=== PATIENT | male | born 1950 ===

== ENCOUNTER 2018-10-29 10:01 | Day surgery (SDC) | payer MEDICARE ==
[2018-10-04 09:53] VITALS: BMI 22.6
--- NOTE | 2018-10-29 11:34 | CP.PCM.CON ---
History of Present Illness - History of Present Illness History of Present Illness: SOLOMON PATIENT IS A 67 YEAR OLD MALE WHO WAS ADMITTED TODAY FOR A BRONCHOSCOPY FOR A RUL MASS SEEN ON CXR AND CT SCAN. HE WAS A FORMER SMOKER. HE ALSO HAS A HISTORY OF CAD, HYPERLIPIDEMIA AND TYPE 2 DM. HE HAD CHEST PAIN IN 2012 FOLLOW ED BY AN ABNORMAL STRESS TEST AND WENT ON TO HAVE A CARDIAC CATH AND CABGS. HE LATER HAD A STENT INSERTION. HE FOLLOWS WITH A LOCAL [employer]LE[employer] IN[employer] AND HASN'T HAD ANY CARDIAC PROBLEMS SINCE. HE HAD A NUCLEAR STRESS TEST IN [place] LAST WEEK THAT HE AND HIS DAUGHTER CLAIM WAS GOOD. HE IS CHEST PAIN FREE TODAY. I HAVE BEEN ASKED TO SEE HIM FOR CARDIAC CLEARANCE. HE IS ON ATORVASTATIN AND METFORMEN AND WAS ALSO ON ASPIRIN THAT WAS STOPPED LAST WEEK Past Patient History - Past Medical History & Family History Past Medical History?: Yes - Past Social History Smoking Status: VAPE-DAILY - CARDIAC Hx Cardiac Disorders: Yes Hx Angina: Yes (2011) Hx Hypercholesterolemia: Yes - PULMONARY Hx Respiratory Disorders: No - NEUROLOGICAL Hx Neurological Disorder: No - HEENT Hx HEENT Problems: Yes Hx Cataracts: Yes (both eyes) - RENAL Hx Chronic Kidney Disease: No - ENDOCRINE/METABOLIC Hx Endocrine Disorders: Yes Hx Diabetes Mellitus Type 2: Yes - HEMATOLOGICAL/ONCOLOGICAL Hx Blood Disorders: No Hx Anemia: No Hx Blood Transfusions: No - INTEGUMENTARY Hx Dermatological Problems: No - MUSCULOSKELETAL/RHEUMATOLOGICAL Hx Musculoskeletal Disorders: Yes Hx Back Pain: Yes Hx Falls: No - GASTROINTESTINAL Hx Gastrointestinal Disorders: Yes Hx Gastritis: Yes Other/Comment: HEARTBURN - GENITOURINARY/GYNECOLOGICAL Hx Genitourinary Disorders: Yes Hx Prostate Problems: Yes (IMFLAMATION OF PROSTATE) Hx Urinary Tract Infection: Yes - PSYCHIATRIC Hx Emotional Abuse: No Hx Physical Abuse: No - SURGICAL HISTORY Hx Surgeries: Yes Hx Cataract Extraction: Yes Hx Cardiac Catheterization: Yes (2011) Hx Eye Surgery: Yes (CATARACT BOTH EYES) Hx Open Heart Surgery: Yes (CLOGGED ARTERIES/VEINS) Other/Comment: OPEN HEART-2012 - ANESTHESIA Hx Anesthesia: Yes Hx Anesthesia Reactions: No Hx Malignant Hyperthermia: No Has any member of the family had a problem w/ anesthesia?: No Meds Allergies/Adverse Reactions: Allergies Allergy/AdvReac Type Severity Reaction Status Date / Time No Known Allergies Allergy Verified 10/05/18 11:10 Physical Exam - Respiratory Exam Respiratory Exam: Clear to Auscultation Bilateral - Cardiovascular Exam Cardiovascular Exam: REGULAR RHYTHM, +S1, +S2 - Extremities Exam Additional comments: NO LE EDEMA - Additional Findings Additional findings: EKG NSR Results - Vital Signs Recent Vital Signs: Last Vital Signs Temp 97.8 F 10/29/18 10:27 Pulse 80 10/29/18 10:34 Resp 18 10/29/18 10:27 BP 124/69 10/29/18 10:27 Pulse Ox 97 10/29/18 10:27 - Labs Labs: Laboratory Results - last 24 hr 10/29/18 10:24 POC Glucose (mg/dL) 233 H Assessment & Plan - Assessment and Plan (Free Text) Assessment: RUL TUMOR CAD-STABLE HYPERLIPIDEMIA TYPE 2 DM Plan: THE PATIENT IS CLEARED FOR HIS BRONCHOSCOPY
[2018-10-29] MEDS ORDERED: Etomidate 20 mg/10ml Inj IV ONE (11:45)
[2018-10-29] MEDS ORDERED: Midazolam 2 MG/2 ML VIAL ONE (11:46)
[2018-10-29] MEDS ORDERED: Propofol 10 mg/ml Inj (20 ML) ONE (11:46)
[2018-10-29] MEDS ORDERED: EPINEPHrine 1 mg/ml (1:1000) Inj ONE (12:01)
[2018-10-29] MEDS ORDERED: Lidocaine 2% Jelly (Uro-Jet) ONE (12:02)
[2018-10-29] MEDS ORDERED: Lidocaine 1% Inj (20ml) ONE (12:02)
[2018-10-29] MEDS ORDERED: Lidocaine 2% Jelly (5 ml) TOP ONE (12:05)
[2018-10-29] MEDS ORDERED: Lactated Ringer's 1,000 ML IV ONE (12:20)
[2018-10-29] MEDS ORDERED: Lactated Ringer's 1,000 ML IV SCH (13:00)
--- NOTE | 2018-10-29 13:14 | RAD ---
Date of service: 10/29/2018 PROCEDURE: Intraoperative Fluoroscopy. HISTORY: BRONCHOSCOPY: RUL FINDINGS: Fluoroscopic assistance was provided. Fluoroscopy time = 32.8 sec. Radiation dose = 2.36 mGy. Please refer to operative report for additional details.
--- NOTE | 2018-10-29 13:32 | RAD ---
Date of service: 10/29/2018 HISTORY: Status post bronchoscopy with biopsy COMPARISON: No prior studies available for comparison TECHNIQUE: 1 view obtained. FINDINGS: LUNGS: Vague patchy opacity seen in the right upper lung field with prominent right hilum. PLEURA: No significant pleural effusion identified, no pneumothorax apparent. CARDIOVASCULAR: No significant aortic atherosclerotic calcification present. Sternotomy wires and CABG clips. Heart size within range of normal.. No pulmonary vascular congestion. OSSEOUS STRUCTURES: No significant abnormalities. VISUALIZED UPPER ABDOMEN: Normal. OTHER FINDINGS: None. IMPRESSION: No evidence of pneumothorax. Vague patchy opacity seen in the right upper lung field with prominent right hilum.
[2018-10-29 13:47] VITALS: RESP 18
[2018-10-29 14:29] VITALS: BP 116/63; PULSE 71; TEMP 97.9; O2SAT 100
--- NOTE | 2018-10-30 08:17 | PROCN ---
DATE OF PROCEDURE: 10/29/2018 PROCEDURE: Fiberoptic bronchoscopy with transbronchial biopsy washings and brushings. INDICATIONS: Right lung mass. DESCRIPTION OF PROCEDURE: The procedure was done in the endoscopy suite under aseptic conditions. After anesthetizing the patient's upper airway with 1% Xylocaine solution, the patient also received IV sedation via anesthesia. The bronchoscope was inserted via the right nostril through the vocal cords, which appeared unremarkable except for a vocal cord polyp. The bronchoscope was advanced through the vocal cords through the trachea, which also appears unremarkable. The entire left tracheobronchial tree appears unremarkable with no endobronchial lesions or no distortion. The right lower segment appeared unremarkable, but the right upper lobe bronchial segment appeared distorted with extrinsic compression of the entire tracheobronchial tree. One was unable to adequately advance the bronchoscope through the endobronchial segment because of distortion. A transparent bronchial biopsy washings and brushings were taken from the upper lobe in the bronchial segment and sent for analysis. Endobronchial biopsies were also obtained. The patient tolerated the procedure well. Minimal bleeding was noted. No complications. The patient was transferred to post anesthesia room post bronchoscopy and appeared to be in stable condition. The case was discussed with the patient's daughter and pictures of procedure were given to her. IMPRESSION: Right lung mass, rule out malignancy. Pathology reports were also sent out to pathology, so were cytology cultures and washings with brushings. PLAN: The plan is to await the pathology report. The patient will be seen in the office as an outpatient and this also will be discussed once obtained. The patient was advised not to operate any heavy machinery for the next 24 hours and to return to the emergency room if any complications appear. He is also advised to take Tylenol on a p.r.n. basis for fever or body aches and return to er if bleeding worsens. Antonio Winn MD [email or web address]
== END 2018-10-29 15:00 | disposition home or self-care (01) ==
LOC: H.OPSURG 10:01
PROVIDERS: ATTEND Internal Medicine Pulmonary Disease
DX: C34.91 Malignant neoplasm of unspecified part of right bronchus or lung (principal); I25.10 Atherosclerotic heart disease of native coronary artery without angina pectoris; E11.9 Type 2 diabetes mellitus without complications; E78.5 Hyperlipidemia, unspecified; I10 Essential (primary) hypertension; E11.51 Type 2 diabetes mellitus with diabetic peripheral angiopathy without gangrene; K29.70 Gastritis, unspecified, without bleeding; E78.00 Pure hypercholesterolemia, unspecified; Z87.891 Personal history of nicotine dependence
CPT/HCPCS: 31628; 71045; 82948; 87015; 87070; 87101; 87116; 87206; 88104; 88305; J0171; J2001; J2250; J2704; J3010; J7030; J7120